=== PATIENT | male | born 1960 | race Caucasian/White ===

== ENCOUNTER 2018-08-08 15:49 | Emergency (ER) | payer MEDICAID ==
[~2018-08-08] VITALS: Ht 180.3 cm; Wt 158.0 kg
[2018-08-08 16:05] VITALS: BP 141/79
[2018-08-08] MEDS ORDERED: ONDANSETRON ODT 8 MG PO ONE (16:30)
[2018-08-08] MEDS ORDERED: ONDANSETRON ODT 4 MG ONE (16:48)
== END 2018-08-08 17:43 | disposition home or self-care (01) ==
LOC: ED 17:38
DX: M62.838 Other muscle spasm (principal); F07.81 Postconcussional syndrome; I10 Essential (primary) hypertension; E11.9 Type 2 diabetes mellitus without complications; F17.210 Nicotine dependence, cigarettes, uncomplicated
CPT/HCPCS: 70450; 72125; 99284; Q0162